=== PATIENT | female | born 1985 | race Caucasian/White ===

== ENCOUNTER → 2016-11-15 | Outpatient (CLI) | payer MEDICARE, MEDICAID | END | disposition home or self-care (01) | LOC: GMAB 10:31 | PROVIDERS: ATTEND Family Medicine | DX: D50.9 Iron deficiency anemia, unspecified (principal); E53.8 Deficiency of other specified B group vitamins ==

== ENCOUNTER → 2016-11-19 | Outpatient (CLI) | payer MEDICARE, MEDICAID | LOC: GMAB 12:39 | PROVIDERS: ATTEND Family Medicine | DX: R53.82 Chronic fatigue, unspecified (principal); I95.89 Other hypotension ==

== ENCOUNTER → 2017-01-12 | Outpatient (CLI) | payer MEDICARE, MEDICAID | END | disposition home or self-care (01) | LOC: LAB.O 08:06 | PROVIDERS: ATTEND Psychiatry & Neurology Sleep Medicine | DX: G40.211 Localization-related (focal) (partial) symptomatic epilepsy and epileptic syndromes with complex partial seizures, intractable, with status epilepticus (principal) ==

== ENCOUNTER → 2017-02-09 | Outpatient (CLI) | payer MEDICARE, MEDICAID | END | disposition home or self-care (01) | LOC: LAB 08:14 | PROVIDERS: ATTEND Internal Medicine | DX: R53.83 Other fatigue (principal); I95.1 Orthostatic hypotension ==

== ENCOUNTER → 2017-04-18 | Outpatient (CLI) | payer MEDICARE, MEDICAID ==
--- NOTE | 2017-04-18 17:07 | US ---
EXAM DESCRIPTION: Bladder: Ultrasound. CLINICAL HISTORY: FAMILY HX OF POLYCYSTIC KIDNEY COMPARISON: Bilateral renal ultrasound on the same visit. TECHNIQUE: Transcutaneous scanning: Two-dimensional and Doppler modes. FINDINGS: Urinary bladder wall 4.6 mm. Prevoid volume 78.2 mL. Postvoid volume 2.4 mL. Ureteral jets were not visualized in the urinary bladder by Doppler. No definite intrinsic masses. No extrinsic mass effect on the bladder. IMPRESSION: Minimal bladder wall thickening but bladder not significantly distended. Voided between 90-95% of the initial volume. Ureteral jets were not seen in the bladder. Electronically signed by: Gui Gonzalez MD 04/18/2017 5:06 PM CDT
--- NOTE | 2017-04-18 19:35 | US ---
EXAM DESCRIPTION: Renal: Ultrasound CLINICAL HISTORY: FAMILY HX OF POLYCYSTIC KIDNEY COMPARISON: Ultrasound of the bladder on the same visit. TECHNIQUE: Transcutaneous scanning: Two-dimensional and Doppler modes. FINDINGS: Right kidney measures 10.9 x 6.4 x 4.9 cm; mid-renal cortical thickness 4.2 mm. . Increased echogenicity compared to the liver with decreased corticomedullary echogenic differentiation. Slightly prominent renal pyramids. No hydronephrosis No calcifications. No cysts. Minimally lobulated contour of the kidney with no perinephric fluid. Decreased vascularity. Proximal ureter not visualized. Left kidney measures 11.8 x 7.9 x 7.1 cm; mid-renal cortical thickness 1.5 mm.. Increased echogenicity of the cortex but decreased compared to the liver. No hydronephrosis. No calcifications. Prominent renal pyramids. Smooth smooth contour of the kidney with no perinephric fluid. Decreased vascularity.. Proximal ureter not visualized. IMPRESSION: 1. Kidneys show cortical atrophy more on the right than the left and abnormal echogenicity of the cortex more right than left. Also a decreased cortical medullary differentiation on the right more than the left. No significant cyst formation bilaterally. No hydronephrosis or perinephric fluid. Findings are suggestive of medical renal disease. Electronically signed by: Gui Gonzalez MD 04/18/2017 7:34 PM CDT
== END | disposition home or self-care (01) ==
LOC: US 07:57
PROVIDERS: ATTEND Family Medicine
DX: Z82.71 Family history of polycystic kidney (principal)

== ENCOUNTER → 2017-05-31 | Outpatient (CLI) | payer MEDICARE, MEDICAID | END | disposition home or self-care (01) | LOC: LAB.O 07:18 | DX: I95.9 Hypotension, unspecified (principal) ==

== ENCOUNTER → 2017-08-01 | Outpatient (CLI) | payer MEDICARE, MEDICAID ==
--- NOTE | 2017-08-01 16:02 | CT ---
EXAM DESCRIPTION: Abdomen/Pelvis w/o Contrast: Computed Tomography. CLINICAL HISTORY: Congenital renal failure COMPARISON: None. TECHNIQUE: Spiral-axial scans 5.0 mm intervals through the abdomen and pelvis without oral or IV contrast. Coronal and sagittal 2.0 mm reconstructions. Total Exam DLP: 493.35 mGy-cm. This exam was performed according to our departmental CT dose-optimization program which includes automated exposure control, adjustment of the mA and/or kV according to patient size and/or use of iterative reconstruction technique; to reduce radiation dose to as low as reasonably achievable (ALARA). FINDINGS: Lung bases and pleura: Negative. Liver, stomach, spleen, and adrenal glands: Surgical hardware and sutures around the stomach anterior to the fundus and also along the greater curvature. Surgical sutures inferior to the stomach in the jejunum could indicate a Mouna-en-Y gastrojejunal anastomosis. Minimal gas and fluid in the stomach. Right lobe of the liver measures 17.4 cm. Other organs are negative. Difficult to visualize the adrenal glands due to lack of intra-abdominal fat.. Pancreas, Gallbladder, and Ducts: Surgical clips in the gallbladder fossa with no fluid. Pancreas grossly normal but difficult to visualize due to lack of fat and air-artifact from gas-filled bowel. Kidneys and Ureters: At least 2 small stones less than 3 mm in diameter in the inferior collecting system of the left kidney. No obstruction. Mesentery: Decreased due to patient body habitus. No free intraperitoneal air. Aorta: Lack of fatty tissue abutting the aorta. Question of lymph nodes or other periaortic soft tissue around the aorta inferior to the renal arteries more on the left. Small Bowel: Limited visualization due to lack of fat. Minimal gas in the proximal small bowel with diffuse fluid distally. No gaseous distention.. Terminal Ileum/Cecum: Not enlarged or distended. Appendix is not well seen. Colon: Minimal gas in the proximal colon with diffuse fecal material. Gas in the transverse colon and predominantly fecal matter in the descending colon and rectosigmoid with minimal gas also in the rectosigmoid. Pelvic Organs: Minimal distention of the urinary bladder with no radiodense stones. Vaginal cuff is unremarkable. No significant amount of fluid in the cul-de-sac. Spine and Bony Pelvis: Spondylosis in the included thoracic spine. Stimulator wires abutting the left mid sacral foramina. Abdominal Wall/Back Soft Tissues: Posterior electrical controller in the lower medial left buttock subcutaneous tissues posterior to the sacrococcygeal border with electrical leads abutting the left sacral foramina. IMPRESSION: 1. Obstipation with fecal matter involving most of the colon. Minimal gaseous distention in the transverse colon. Technically difficult study due to lack of IV contrast. 2. Small air-fluid levels proximal small bowel and distal small bowel containing fluid no definite obstruction. Technically difficult study due to lack of oral contrast. 3. Previous Mouna-en-Y Gastro jejunal anastomosis. No evidence of obstruction. Oral contrast would help to evaluate for obstruction or leakage of contrast if clinically suspected. 4. Low-density soft tissues abutting the aorta inferior to the renal arteries. Represent lymph nodes. These can be defined with more sensitivity after IV contrast. 5. Small stones in the inferior collecting system of the left kidney with no evidence of obstruction. Electronically signed by: Gui Gonzalez MD 08/01/2017 4:01 PM TUMBLERS SUPERVISOR
== END | disposition home or self-care (01) ==
LOC: CT 09:30
PROVIDERS: ATTEND Urology
DX: P96.0 Congenital renal failure (principal); K56.41 Fecal impaction; N20.0 Calculus of kidney

== ENCOUNTER 2017-08-22 16:15 | Observation (INO) | payer MEDICARE, MEDICAID ==
--- NOTE | 2017-08-22 16:54 | HP ---
SUPERVISING PHYSICIAN: Azam Mercedes M.D. CHIEF COMPLAINT: Direct admission for right lower lobe pneumonia. HISTORY OF PRESENT ILLNESS: This is a 32 year-old female who has a 5 day history of body aches, congestion, headache, sore throat and cough. Apparently this has been going on since last Tuesday and the only thing she has taken so far is Zyrtec D. She is not running any fever according to her father. The patient does have MR and does not speak a whole lot, so the History of Present Illness is primarily coming from the father. Anyhow, she went to see a PA over at Dr. Benítez's office today and had a chest x-ray. A two view chest x-ray was notable for a right lower lobe infiltrate. A CBC that was done shows a normal white count, however she does have a history of leukopenia in the past. Her flu screen was negative. Her Strep screen was negative as well. She was referred for observation admission over here for pneumonia. At time of examination the patient is alert and in no distress. PAST MEDICAL HISTORY: 1. Cerebrovascular accident. 2. Seizure disorder. 3. Encephalopathy. 4. Hemiplegia. PAST SURGICAL HISTORY: 1. Hysterectomy. 2. Tonsillectomy and adenoidectomy. 3. Right knee surgery. 4. TENS unit placement. 5. Some sort of bariatric surgery as well. CURRENT MEDICATIONS: 1. Simvastatin 20 mg daily. 2. Ventolin 90 mcg 2 puffs every 4 to 6 hours p.r.n. for cough. 3. Nexium 40 mg daily. 4. Linzess 145 mcg 1 to 2 capsules daily. 5. Paxil 10 mg p.o. daily. 6. Fludrocortisone 0.1 mg 2 tabs by mouth daily. 7. Dilantin 100 mg b.i.d. 8. Vitamin B12 1,000 mcg IM every month. 9. Lorazepam 0.5 mg p.r.n. for anxiety. 10. Zonegran 300 mg in the morning, 400 mg at night. ALLERGIES: LEVAQUIN, BIAXIN, TRILEPTAL, LAMICTAL. FAMILY HISTORY: Father has coronary artery disease, hypertension, hyperlipidemia and myocardial infarction. Mother has hypothyroidism. SOCIAL HISTORY: Nondrinker, nonsmoker. No illicit drugs. REVIEW OF SYSTEMS: See History of Present Illness. The patient does not speak verbally at this point. PHYSICAL EXAMINATION: GENERAL: Ms. Garcia is a 32 year-old female in no active distress currently. HEENT: Head is normocephalic and atraumatic. EYES: Pupils are equal and reactive. NOSE: No drainage. THROAT: Moist mucosa. NECK: Supple, midline trachea. No jugular venous distention. CHEST: Symmetrical with equal rise and fall with respirations. She does have some adventitious lung sounds such as coarse sounds on the right. There is a mild expiratory wheeze. CARDIOVASCULAR: Regular rate and rhythm. Normal S1 and S2. ABDOMEN: Soft, positive bowel sounds. No tenderness to palpation. GENITOURINARY: Exam is deferred. EXTREMITIES: Lower extremities with no significant edema. NEUROLOGIC: The patient is alert but nonverbal with me. She does have a history of MR. LABORATORY: Labs and films are reviewed from the clinic. I have ordered new studies for here. ASSESSMENT: 1. Right lower lobe pneumonia. 2. History of leukopenia which at this time appears to be within normal range. 3. History of seizure disorder. 4. History of mental retardation. PLAN: Will start the patient on pneumonia guidelines which includes blood cultures, sputum cultures along with empiric Rocephin for antibiotics. Will not utilize azithromycin as she does have a history of allergy to Biaxin. Will monitor the cultures and adjust antibiotics accordingly. Additionally, will check a Dilantin level in the morning and also resume the patient's home medications once they are reconciled in the computer. Will utilize seizure precautions for this patient. #[id number] [facility], [place]
[2017-08-22] MEDS ORDERED: SODIUM CHLORIDE 0.9% (FLUSH) 10 ML SYG IV PRN (17:05)
[2017-08-22] MEDS ORDERED: ACETAMINOPHEN 325 MG TAB PO PRN (17:05)
[2017-08-22] MEDS ORDERED: IV SET AND CAP CHANGE INJ INJ SCH (17:30)
[2017-08-22] MEDS ORDERED: cefTRIAXone SODIUM 1 GM VIAL ONE (18:19)
[2017-08-22] MEDS ORDERED: SODIUM CHL 0.9% 50ML MIN-BAG+ 50 ML IVPB ONE (18:19)
[2017-08-22] MEDS: cefTRIAXone SODIUM 1 GM in SODIUM CHL 0.9% 50ML MIN-BAG+ 50 ML IVPB SCH (18:30)
[2017-08-22] MEDS: BRIVARACETAM 200 MG PO SCH (20:00)
[2017-08-22] MEDS: ALBUTEROL SULFATE 2.5 MG/3 ML VIAL NEB SCH (20:11)
[2017-08-22] MEDS ORDERED: ZONISAMIDE 400 MG PO SCH (21:00)
[2017-08-22] MEDS ORDERED: SIMVASTATIN 20 MG TAB PO SCH (21:00)
[2017-08-22] MEDS: KCL 20 MEQ/NS 1,000 ML IVS PRN (21:13)
[2017-08-23] MEDS: FOLIC ACID 800 MCG PO SCH ×2 (06:20→08:52)
[2017-08-23] MEDS: NON-FORMULARY MEDICATION 1 EA MIS (Esomeprazole Magnesium [Nexium] 40 MG) PO SCH (06:20)
[2017-08-23] MEDS: LINACLOTIDE PO SCH (06:21)
[2017-08-23] MEDS: ZONISAMIDE 300 MG PO SCH ×2 (06:21→08:52)
--- NOTE | 2017-08-23 07:05 | RAD ---
EXAM DESCRIPTION: Chest,1 View CLINICAL HISTORY: Pneumonia FINDINGS/ IMPRESSION: Small area of infiltrate medial basilar segment right lower lobe. Normal cardiomediastinal silhouette. No edema or effusion. Electronically signed by: Azam Castro MD 08/23/2017 7:04 AM SOFTWARE TEST ENGINEER
[2017-08-23] MEDS: ALBUTEROL SULFATE 2.5 MG/3 ML VIAL NEB SCH ×4 (08:13→21:25)
[2017-08-23] MEDS ORDERED: CYANOCOBALAMIN 1000 MCG PO SCH (09:00)
[2017-08-23] MEDS: KCL 20 MEQ/NS 1,000 ML IVS PRN (11:41)
--- NOTE | 2017-08-23 13:15 | PN ---
SUPERVISING PHYSICIAN: Azam Mercedes MD DATE: 08/23/17 SUBJECTIVE: The patient did not have any complaints overnight. She did not have any shortness of breath. Once again, she really does not interact with me very much and her parents speak for her for the most part, but they do not state that she has any issues. OBJECTIVE: VITAL SIGNS: Blood pressure 88/54. Heart rate 65. Respiratory rate 18. Temperature 97.8. Oxygen saturation 95% on room air. She has remained afebrile since admission. GENERAL: Ms. Garcia is in no active distress currently. HEENT: Normocephalic, atraumatic. Pupils are equal and reactive. No nasal drainage. Throat with moist mucosa. CHEST: Lungs are little bit diminished in the right base, otherwise, clear to auscultation bilaterally. CARDIOVASCULAR: Regular rate and rhythm. Normal S1, S2. ABDOMEN: Soft. Positive bowel sounds. No tenderness to palpation. EXTREMITIES: Lower extremities with good peripheral pulses. Capillary refill is less than 2 seconds. NEUROLOGIC: The patient is alert. As stated before, she is mostly nonverbal. LABORATORY: WBC 3.7, hemoglobin 12.0, hematocrit 35.3, platelet count 213. Chemistry shows sodium 139, potassium 3.5, chloride 113, CO2 19, creatinine 0.42 , glucose 88, calcium 8.5. RADIOLOGY: Chest x-ray was reviewed and still shows a small infiltrate in the medial base of the lower segment of the right lower lobe. This is unchanged. ASSESSMENT: 1. Right lower lobe pneumonia. 2. History of leukopenia. 3. History of seizure disorder. 4. History of mental retardation. PLAN: We will continue the Rocephin for now. Labs are pretty much unremarkable. She does have a history of leukopenia, so I am not concerned about the white blood cell count of 3.7. She does not appear septic. She is very small, so the lower blood pressure is probably chronic for her. She is asymptomatic and has had high 80s to low 90s blood pressures the entire time she has been here so far. Her mother is at the bedside and is concerned somewhat about her lack of eating. However, the patient has had a gastric bypass. I told her mother she could go get her whatever she wanted to eat and she did not have to just utilize the hospital food at this time. If she remains afebrile today and there are no significant changes, she can probably be discharged tomorrow on p.o. antibiotics. #[id number] [facility]
[2017-08-23] MEDS ORDERED: cefTRIAXone SODIUM 1 GM VIAL ONE (17:12)
[2017-08-23] MEDS ORDERED: SODIUM CHL 0.9% 50ML MIN-BAG+ 50 ML IVPB ONE (17:12)
[2017-08-23] MEDS: cefTRIAXone SODIUM 1 GM in SODIUM CHL 0.9% 50ML MIN-BAG+ 50 ML IVPB SCH (17:52)
[2017-08-23] MEDS ORDERED: ZONISAMIDE 400 MG PO SCH (19:00)
[2017-08-23] MEDS ORDERED: SIMVASTATIN 20 MG TAB PO SCH (19:00)
[2017-08-23] MEDS: BRIVARACETAM 200 MG PO SCH (19:03)
[2017-08-24 00:43] VITALS: O2SAT 98
[2017-08-24] MEDS: KCL 20 MEQ/NS 1,000 ML IVS PRN (01:41)
[2017-08-24 02:49] VITALS: TEMP 98
[2017-08-24] MEDS ORDERED: CYANOCOBALAMIN 1,000 MCG TAB ONE (03:11)
[2017-08-24] MEDS ORDERED: FOLIC ACID 1 MG TAB ONE (03:11)
[2017-08-24] MEDS: NON-FORMULARY MEDICATION 1 EA MIS (Esomeprazole Magnesium [Nexium] 40 MG) PO SCH (06:53)
[2017-08-24] MEDS: LINACLOTIDE PO SCH (06:54)
[2017-08-24] MEDS ORDERED: CYANOCOBALAMIN 1,000 MCG TAB PO SCH (07:00)
[2017-08-24] MEDS ORDERED: ZONISAMIDE 300 MG PO SCH (07:00)
[2017-08-24] MEDS ORDERED: FOLIC ACID 1 MG TAB PO SCH (07:00)
[2017-08-24 07:27] VITALS: BP 143/72
--- NOTE | 2017-08-24 07:46 | RAD ---
EXAM DESCRIPTION: Chest,1 View CLINICAL HISTORY: pneumonia follow up shortness of breath, cough COMPARISON: August 23, 2017 IMPRESSION: Single AP portable upright view of the chest shows cardiac silhouette and pulmonary vasculature to be within normal limits. Lungs are normally aerated. Persistent interstitial alveolar infiltrate in the medial aspect of the right lower lobe similar to previous exam. No new infiltrates. No pleural effusion or pneumothorax. Electronically signed by: Tyson Grayson MD 08/24/2017 7:45 AM MAINFRAME SYSTEMS PROGRAMMER
[2017-08-24] MEDS: ALBUTEROL SULFATE 2.5 MG/3 ML VIAL NEB SCH ×2 (08:52→13:19)
--- NOTE | 2017-08-25 08:35 | DS ---
SUPERVISING PHYSICIAN: Azam Mercedes MD ADMISSION DIAGNOSIS: 1. Right lower lobe pneumonia. 2. History of leukopenia. 3. History of seizure disorder. 4. History of mental retardation. DISCHARGE DIAGNOSIS: 1. Right lower lobe pneumonia. 2. History of leukopenia. 3. History of seizure disorder. 4. History of mental retardation. HOSPITAL COURSE: Ms. Garcia is a 32-year-old female who had a five day history of body aches, congestion, headache, sore throat and cough. She had a chest x- ray at the clinic and it showed a right lower lobe infiltrate. For that reason , she was referred for admission. Upon arrival, the patient did have a positive cough and fortunately throughout the admission has been afebrile. She was placed on ceftriaxone and tolerated it well. She was able to eat the day of discharge whereas before she really was not wanting to eat much. Her white blood cell count is not elevated. I am aware she does have a history of leukopenia, but she has not shown any signs of systemic inflammatory response. She is pretty much nonverbal, so most of her interaction is through her parents. She will be discharged in stable condition today. DISCHARGE MEDICATIONS: Doxycycline 100 mg p.o. b.i.d. ACTIVITY: As tolerated. DIET: As per usual. FOLLOWUP: Appointment with Dr. Benítez on 08/29/17 at 10:45 AM. #[id number] [facility]
== END 2017-08-24 13:49 | disposition home or self-care (01) ==
LOC: MS 16:15
PROVIDERS: ADMIT Emergency Medicine; ATTEND Nurse Practitioner
DX: J18.9 Pneumonia, unspecified organism (principal); G40.909 Epilepsy, unspecified, not intractable, without status epilepticus; F79 Unspecified intellectual disabilities; G81.90 Hemiplegia, unspecified affecting unspecified side; Z86.73 Personal history of transient ischemic attack (TIA), and cerebral infarction without residual deficits; Z79.899 Other long term (current) drug therapy; Z88.3 Allergy status to other anti-infective agents; Z88.8 Allergy status to other drugs, medicaments and biological substances; Z98.84 Bariatric surgery status
CPT/HCPCS: 36415 ×4; 71045 ×2; 80048 ×2; 80053; 80185; 81001; 85025 ×2; 87040 ×2; 87070; 87086; 87186; 87205; 94640 ×7; 94760 ×4; 96365; 96376; G0378; J0696 ×2; J3480 ×3; J7050 ×2; J7611 ×6

== ENCOUNTER → 2018-01-02 | Outpatient (CLI) | payer MEDICARE, MEDICAID | LOC: LAB.O 15:30 | PROVIDERS: ATTEND Psychiatry & Neurology Sleep Medicine | DX: G40.319 Generalized idiopathic epilepsy and epileptic syndromes, intractable, without status epilepticus (principal) ==

== ENCOUNTER → 2018-04-21 | Outpatient (CLI) | payer MEDICARE, MEDICAID | LOC: LAB.O 08:32 | PROVIDERS: ATTEND Urology | DX: Z00.00 Encounter for general adult medical examination without abnormal findings (principal); R30.0 Dysuria ==

== ENCOUNTER 2018-06-15 23:09 | Emergency (ER) | payer MEDICARE, MEDICAID ==
[2018-06-15 23:31] VITALS: O2SAT 98
--- NOTE | 2018-06-15 23:46 | RAD ---
EXAM DESCRIPTION: Chest,1 View CLINICAL HISTORY: 33 years Female seizure, possible aspiration COMPARISON: 08/24/2017 FINDINGS: Cardiac size medicinal contour are unchanged. Stimulator over the left chest. There is some increased density in the right lung base. Findings may reflect early aspiration. Recommend continued follow-up. IMPRESSION: Some increased density in the right lung base which may reflect aspiration. Recommend continued follow-up Electronically signed by: Brenda Bojorquez MD 06/15/2018 11:45 PM [facility]
[2018-06-16] MEDS ORDERED: cefTRIAXone SODIUM 1 GM VIAL ONE (00:53)
[2018-06-16] MEDS ORDERED: SODIUM CHL 0.9% 50ML MIN-BAG+ 50 ML IVPB ONE (00:54)
--- NOTE | 2018-06-16 00:55 | ED.PDOC ---
History of Present Illness - General Chief Complaint: Neuro Symptoms/Deficits Stated Complaint: Increased seizure activity Time Seen by Provider: 06/15/18 23:10 Source: patient Exam Limitations: no limitations - History of Present Illness Initial Comments: the patient is a 33-year-old female brought in by EMS by request of her parents. The patient has epilepsy that is primarily of the partial type. She has had epilepsy for many years. She has several different forms of partial seizures. Family reports that in any given day depending on the type of seizure she may have between 50 and a couple of 100 seizures. She has had a stroke in the distant past and does have some left-sided deficits. She does have some speech delay but does communicate fairly well with the parents once the postictal status past. She was brought in tonight because she had one seizure that was more significant than that seen in the last 4-6 months. The seizure started with her throwing up. This has apparently happened in the past but is been a while. It was also followed by more significant postictal period and then has been seen by her parents in a while. Upon arrival she is essentially nonverbal. After a small dose of Ativan and about a half an hour she starts speakingagain . she has been conscious the whole time she was here. In fact dad reports that she never did completely lose consciousness at home. The worst part of the episode probably lasted 3-5 minutes followed by a postictal state lasted probably in total 45 minutes to an hour. During the postictal time she was having some of her more normal partial seizures. No evidence of any trauma. She does have some mild coarse rhonchi primarily on the right side indicating the possibility of a mild aspiration. No hypoxia. No respiratory distress. Vital signs are stable. Timing/Duration: unsure Severity: moderate Improving Factors: nothing Worsening Factors: nothing Associated Symptoms: malaise Allergies/Adverse Reactions: Allergies Clarithromycin [From Biaxin] Allergy (Verified 08/22/17 18:02) Lamotrigine [From Lamictal] Allergy (Verified 08/22/17 18:02) Levofloxacin [From Levaquin] Allergy (Verified 08/22/17 18:02) Oxcarbazepine [From Trileptal] Allergy (Verified 08/22/17 18:02) Tramadol Adverse Reaction (Verified 08/22/17 18:02) Home Medications: Ambulatory Orders Simvastatin 20 mg PO BEDTIME 09/18/14 Brivaracetam [Briviact] 200 mg PO DAILY@1900 08/22/17 Cyanocobalamin [B12] 1,000 mcg PO DAILY 08/22/17 Folic Acid 800 mcg PO DAILY 08/22/17 Linaclotide [Linzess] 145 - 290 mcg PO ACBK 08/22/17 Doxycycline (Monohydrate) [Doxycycline Monohydrate] 100 mg PO BID #20 tab Lacosamide [Vimpat] 150 mg PO DAILY 06/15/18 Potassium Citrate (Alkalinizer [Potassium Citrate ER] 15 meq PO DAILY 06/15/18 Clindamycin HCl 300 mg PO Q8H #14 cap 06/16/18 Review of Systems - Review of Systems Constitutional: States: malaise EENTM: States: no symptoms reported Respiratory: States: no symptoms reported Cardiology: States: no symptoms reported Gastrointestinal/Abdominal: States: no symptoms reported Genitourinary: States: no symptoms reported Musculoskeletal: States: no symptoms reported Skin: States: no symptoms reported Neurological: States: see HPI Endocrine: States: no symptoms reported All other Systems: No Change from Baseline Past Medical History (General) - Patient Medical History Hx Seizures: Yes - VNS x 4, epilepsy Hx Stroke: Yes - 1990 Hx Asthma: Yes - no meds Hx of COPD: No Hx Cardiac Disorders: No Hx Congestive Heart Failure: No Hx Thyroid Disease: No Hx Diabetes: No Hx Renal Disease: Yes Hx Cancer: No Hx Hepatitis C: No Hx MRSA: No Surgical History: cholecystectomy, gastric bypass, Hysterectomy, other - Vaccination History Hx Tetanus, Diphtheria Vaccination: Yes Hx Influenza Vaccination: Yes Hx Pneumococcal Vaccination: No - Social History Hx Tobacco Use: No Hx Chewing Tobacco Use: No Hx Alcohol Use: No Hx Substance Use: No Hx Substance Use Treatment: No Hx Depression: No Hx Physical Abuse: No Hx Emotional Abuse: No Hx Suspected Abuse: No - Female History Patient : - hysterectomy Family Medical History - Family History Father Family History: Unknown Living Status: Still Living Hx Family Hypertension: Yes Hx Cardiac Disease: Yes - Hx GA; cardiac stents Physical Exam - Physical Exam General Appearance: Comfortable, No apparent distress, Lethargic Eye Exam: bilateral normal Ears, Nose, Throat: hearing grossly normal, normal pharynx Neck: full range of motion, supple Respiratory: no respiratory distress, no accessory muscle use, other - mild right-sided rhonchi Cardiovascular/Chest: normal peripheral pulses, regular rate, rhythm, no edema Peripheral Pulses: radial,right: 2+, radial,left: 2+ Gastrointestinal/Abdominal: non tender, soft Rectal Exam: deferred Extremity: normal range of motion - decreased strength significantly to the left upper extremity and mildly to the left lower extremity, no pedal edema - related to her previous stroke, no calf tenderness, normal capillary refill Neurologic: oriented x 3 - after the postictal state his past Skin Exam: normal color Comments: Vital Signs - 24 hr 06/15/18 23:19 Temperature 98.1 F Pulse Rate [ 99 H left] Respiratory 16 Rate Blood Pressure 110/77 [left] O2 Sat by Pulse 98 Oximetry Progress - Progress Progress: 06/16/18 00:57 the patient is a 33-year-old female with a history of epilepsy presenting after a more unusual seizure for her, appears to be complex partial in nature. There is the possibility of mild aspiration. Vital signs are stable. Given this the patient is being started on antibiotics tonight and will be continued on clindamycin for the next 5 days. She did receive a small dose of Ativan IV after arrival here as well as a small dose of oral clonazepam prior to her discharge. Family does need to contact her neurologist tomorrow to report the event and see if any medication changes are recommended. Right now the patient essentially has no respiratory symptoms, however if that changes she may need a repeat evaluation. ER warnings were given. - Results/Orders Results/Orders: Laboratory Tests 06/15/18 06/15/18 22:50 22:50 WBC 4.4 L RBC 4.06 L Hgb 13.2 Hct 39.8 MCV 97.8 MCH 32.5 H MCHC 33.2 RDW 12.3 Plt Count 189 MPV 11.1 H Absolute Neuts (auto) 2.30 Absolute Lymphs (auto) 1.40 Absolute Monos (auto) 0.40 Absolute Eos (auto) 0.20 Absolute Basos (auto) 0.00 Neutrophils % 52.3 Lymphocytes % 33.3 Monocytes % 10.1 H Eosinophils % 3.7 Basophils % 0.6 Sodium 136 Potassium 3.8 Chloride 103 Carbon Dioxide 26 Anion Gap 10.8 L BUN 12 Creatinine 0.42 L BUN/Creatinine Ratio 28.6 H Random Glucose 125 H Serum Osmolality 273.2 L Calcium 8.8 Magnesium 2.1 Total Bilirubin 0.6 AST 24 ALT 14 Alkaline Phosphatase 78 Serum Total Protein 7.8 Albumin 4.2 Globulin 3.6 H Albumin/Globulin Ratio 1.2 TSH 2.11 x-ray of the chest shows right lower lobe infiltrate versus scarring. I believe this is primarily scarring given her previous x-ray readings. Departure - Departure Clinical Impression: Epilepsy Qualifiers: Partial seizure type: with complex partial seizures Intractability: intractable Status epilepticus: without status epilepticus Aspiration into airway Qualifiers: Encounter type: initial encounter Qualified Code(s): T17.908A - Unspecified foreign body in respiratory tract, part unspecified causing other injury, initial encounter Disposition: Discharge to Home or Self Care Condition: Fair Departure Forms: ED Discharge - Pt. Copy, Patient Portal Self Enrollment Instructions: Seizures, Adult (DC), Aspiration Pneumonia (DC) Diet: regular diet Activity: increase activity as tolerated Referrals: Gregor Ortiz MD [Primary Care Provider] - 1-2 Weeks Prescriptions: Clindamycin HCl 300 mg PO Q8H #14 cap Home Medications: Ambulatory Orders Simvastatin 20 mg PO BEDTIME 09/18/14 Brivaracetam [Briviact] 200 mg PO DAILY@1900 08/22/17 Cyanocobalamin [B12] 1,000 mcg PO DAILY 08/22/17 Folic Acid 800 mcg PO DAILY 08/22/17 Linaclotide [Linzess] 145 - 290 mcg PO ACBK 08/22/17 Doxycycline (Monohydrate) [Doxycycline Monohydrate] 100 mg PO BID #20 tab Lacosamide [Vimpat] 150 mg PO DAILY 06/15/18 Potassium Citrate (Alkalinizer [Potassium Citrate ER] 15 meq PO DAILY 06/15/18 Clindamycin HCl 300 mg PO Q8H #14 cap 06/16/18 Additional Instructions: the patient is a 33-year-old female with a history of epilepsy presenting after a more unusual seizure for her, appears to be complex partial in nature. There is the possibility of mild aspiration. Vital signs are stable. Given this the patient is being started on antibiotics tonight and will be continued on clindamycin for the next 5 days. She did receive a small dose of Ativan IV after arrival here as well as a small dose of oral clonazepam prior to her discharge. Family does need to contact her neurologist tomorrow to report the event and see if any medication changes are recommended. Right now the patient essentially has no respiratory symptoms, however if that changes she may need a repeat evaluation. ER warnings were given.
[2018-06-16] MEDS: cefTRIAXone SODIUM 1 GM in SODIUM CHL 0.9% 50ML MIN-BAG+ 50 ML IVPB ONE (00:59)
[2018-06-16] MEDS: CLINDAMYCIN HCL CAP 150 MG CAP PO ONE (00:59)
[2018-06-16 01:54] VITALS: BP 96/63; TEMP 98.6
== END 2018-06-16 01:48 | disposition home or self-care (01) ==
LOC: ER 23:09
DX: G40.909 Epilepsy, unspecified, not intractable, without status epilepticus (principal); T17.908A Unspecified foreign body in respiratory tract, part unspecified causing other injury, initial encounter; J45.909 Unspecified asthma, uncomplicated; N18.9 Chronic kidney disease, unspecified; Z86.73 Personal history of transient ischemic attack (TIA), and cerebral infarction without residual deficits; Z79.899 Other long term (current) drug therapy; Z88.8 Allergy status to other drugs, medicaments and biological substances
CPT/HCPCS: 36415; 71045; 80053; 83735; 84443; 85025; J0696; J2060; J7050

== ENCOUNTER → 2018-11-10 | Outpatient (CLI) | payer MEDICARE, MEDICAID | LOC: LAB.O 08:56 | PROVIDERS: ATTEND Internal Medicine Hematology & Oncology | DX: D50.9 Iron deficiency anemia, unspecified (principal); D64.9 Anemia, unspecified ==

== ENCOUNTER → 2019-04-17 | Outpatient (CLI) | payer MEDICARE, MEDICAID | LOC: YCFC.O 16:39 | PROVIDERS: ATTEND Family Medicine | DX: N39.0 Urinary tract infection, site not specified (principal) ==

== ENCOUNTER → 2019-05-18 | Outpatient (CLI) | payer MEDICARE, MEDICAID | LOC: LAB.O 08:17 | PROVIDERS: ATTEND Internal Medicine Hematology & Oncology | DX: R68.89 Other general symptoms and signs (principal); D53.9 Nutritional anemia, unspecified ==

== ENCOUNTER → 2019-06-18 | Outpatient (CLI) | payer MEDICARE, MEDICAID | LOC: LAB.O 08:58 | PROVIDERS: ATTEND Obstetrics & Gynecology | DX: R45.4 Irritability and anger (principal) ==

== ENCOUNTER 2020-04-03 20:08 | Emergency (ER) | payer MEDICARE, MEDICAID ==
--- NOTE | 2020-04-03 20:35 | ED.PDOC ---
History of Present Illness - General Time Seen by Provider: 04/03/20 20:18 - History of Present Illness Initial Comments: 34 yo F with complex seizures starting at the age 5 comes in with unwitnessed tonic clonic? seizure. Patient was outside on porch. Service dog was inside sta rted barking, alerted mom. did not bite tongue. no postictal state per mom. mom went to help her inside and she fell to the ground when walking inside. did not hit head. fell onto right shoulder. Follows Dr. Suresh in [place], [place]. Mom talk to dr nguyen environmental sampling technician for [facility] and was told to give 1 mg PO ativan. Patient started spitting up when initially taking ativan, spit it back out. She was then able to swallow is successful. Denies recent illness, no fever, no chills, no n/v/d. Allergies/Adverse Reactions: Allergies Clarithromycin [From Biaxin] Allergy (Verified 08/22/17 18:02) Lamotrigine [From Lamictal] Allergy (Verified 08/22/17 18:02) Levofloxacin [From Levaquin] Allergy (Verified 08/22/17 18:02) Oxcarbazepine [From Trileptal] Allergy (Verified 08/22/17 18:02) Tramadol Adverse Reaction (Verified 08/22/17 18:02) Home Medications: Ambulatory Orders Brivaracetam [Briviact] 200 mg PO DAILY@1900 08/22/17 Cyanocobalamin [B12] 1,000 mcg PO DAILY 08/22/17 Folic Acid 800 mcg PO DAILY 08/22/17 Linaclotide [Linzess] 145 - 290 mcg PO ACBK 08/22/17 Lacosamide [Vimpat] 150 mg PO DAILY 06/15/18 B-Complex W/Biotin & Folic Aci [B Complete] 04/03/20 Cannabidiol [Epidiolex] 100 mg PO 04/03/20 Cholecalciferol [D3 High Potency] 5,000 unit PO 04/03/20 Dicyclomine HCl [Bentyl] 20 mg PO 04/03/20 Fluticasone Furoate (Inhalatio 50 mcg 04/03/20 Ketoconazole (Topical) [Ketoconazole] 04/03/20 Lorazepam [Ativan] 1 mg PO 04/03/20 Multiple Vitamin [Multi Vitamin Daily] 04/03/20 Sertraline HCl 50 mg PO 04/03/20 Triamcinolone 0.5% Cream [Kenalog 0.5% Cream] 04/03/20 Review of Systems - Review of Systems Constitutional: Denies: diaphoresis, fever EENTM: Denies: eye pain, tearing Respiratory: Denies: cough, short of breath Cardiology: Denies: edema Gastrointestinal/Abdominal: Denies: abdominal pain, constipation, diarrhea, vomiting Genitourinary: Denies: frequency, hematuria Musculoskeletal: Denies: neck pain Skin: Denies: change in color, rash Neurological: States: pre-existing deficit, seizure Endocrine: Denies: unexplained weight gain, unexplained weight loss Hematologic/Lymphatic: Denies: anemia, easy bleeding, easy bruising Past Medical History (General) - Patient Medical History Hx Seizures: Yes - VNS x 4, epilepsy Hx Stroke: Yes - 1990 Hx Asthma: Yes - no meds Hx of COPD: No Hx Cardiac Disorders: No Hx Congestive Heart Failure: No Hx Thyroid Disease: No Hx Diabetes: No Hx Renal Disease: Yes Hx Cancer: No Hx Hepatitis C: No Hx MRSA: No - Vaccination History Hx Tetanus, Diphtheria Vaccination: Yes Hx Influenza Vaccination: Yes Hx Pneumococcal Vaccination: No - Social History Hx Tobacco Use: No Hx Chewing Tobacco Use: No Hx Alcohol Use: No Hx Substance Use: No Hx Substance Use Treatment: No Hx Depression: No Hx Physical Abuse: No Hx Emotional Abuse: No Hx Suspected Abuse: No - Female History Patient : - hysterectomy Family Medical History - Family History Father Family History: Unknown Living Status: Still Living Hx Family Hypertension: Yes Hx Cardiac Disease: Yes - Hx [place]; cardiac stents Physical Exam - Physical Exam General Appearance: Alert, Comfortable, No apparent distress Eye Exam: bilateral normal ENT Exam: normal ENT inspection, hearing grossly normal, TMs normal, other - right Tm with scar tissue. right canal with scratch. mom states she is constantly. scratching at her ears. Neck: non-tender, full range of motion, supple, normal inspection, trachea midline Respiratory: chest non-tender, lungs clear, normal breath sounds, no respiratory distress, no accessory muscle use Cardiovascular/Chest: normal peripheral pulses, regular rate, rhythm, no edema, no gallop, no JVD, no murmur Peripheral Pulses: radial,right: 2+, radial,left: 2+, dorsalis pedis,right: 2+, dorsalis pedis,left: 2+ Gastrointestinal/Abdominal: normal bowel sounds, non tender, soft, no organomegaly, no pulsatile mass Back Exam: normal inspection, no CVA tenderness, no vertebral tenderness Extremities Exam: non-tender, normal range of motion, no evidence of injury, no edema, other - left upper and lower extremity weakness, chronic from prior stroke. Mental Status: alert, other - at baseline, responding at baseline per mom. checker and packer Exam: normal speech - speech at baseline , PERRL Motor/Sensory: no motor deficit, no sensory deficit, no pronator drift Skin Exam: normal color, warm/dry Progress - Progress Progress: Parital ddx: worsening epilepsy, infection, aspiration pneumonia, electrolyte abnormality, thyroid abnormality. Discussed case with Dr Ward at [facility]. Patient has several seizures daily at baseline. Has vagal stimulator normally last years in most seizure patients, but hers in past only tends to last 1 year due to her frequency of seizures. seizures are usually partial in nature. Has not had battery changed in three years. Has an appointment tomorrow to have it re-evaluated. Ekg shows sinus tachycardia with first degree AV block. Incomplete RBBB which is not new, nonspecific t wave abnormality including t wave inversion in precordial leads. no significant changes when compared to 01/14/15. Blood work shows hypokalemia, mom states she was recently taken off potassium pills because she would not absorb them. Insurance does not cover liquid. Will give liquid 40 meq one time dose here. CT head shows no acute findings. CXR: shows chronic right basilar interstitial thickening would could represent chronic aspiration pneumonitis, no evidence of pneumonia. xray shoulder showed no acute pathology. Discussed findings with Dr. Ward who agrees that patient can return home and follow up tomorrow at [facility] with Dr. Suresh. The data reviewed when caring for this patient included: nurse notes, prior records, etc. The history and assessments from nurses notes were reviewed and considered, and the patient's home medication list was also reviewed and considered. My assessment and the results of testing completed here in the ED were discussed with the patient/family. per mom patient is at baseline. All questions were answered, and mom express understanding of my assessment and the plan. They have been instructed to return if their symptoms worsen, and have been asked to follow up with Dr. Suresh tomorrow to recheck today's presenting complaint. return precautions given. patient was discharged home in stable condition. Marlyn Mishra DO #[id number] Laboratory Results WBC 4.8 K/mm3 (4.8-10.8) 04/03/20 20:30 RBC 3.89 M/mm3 (4.20-5.40) L 04/03/20 20:30 Hgb 12.6 gm/dL (12.0-16.0) 04/03/20 20:30 Hct 37.0 % (36.0-47.0) 04/03/20 20:30 MCV 95.1 fl (81.0-99.0) 04/03/20 20:30 MCH 32.5 pg (27.0-31.0) H 04/03/20 20:30 MCHC 34.2 g/dL (33.0-37.0) 04/03/20 20:30 RDW 12.5 % (11.5-14.5) 04/03/20 20:30 Plt Count 183 K/mm3 (130-400) 04/03/20 20:30 MPV 11.1 fl (7.40-10.4) H 04/03/20 20:30 Absolute Neuts (auto) 2.50 K/uL (1.8-6.8) 04/03/20 20:30 Absolute Lymphs (auto) 1.60 K/uL (1.0-3.4) 04/03/20 20:30 Absolute Monos (auto) 0.40 K/uL (0.2-0.8) 04/03/20 20:30 Absolute Eos (auto) 0.20 K/uL (0.0-0.4) 04/03/20 20:30 Absolute Basos (auto) 0.00 K/uL (0.0-0.1) 04/03/20 20:30 Neutrophils % 52.6 % (42.0-78.0) 04/03/20 20:30 Lymphocytes % 34.1 % (20.0-50.0) 04/03/20 20:30 Monocytes % 9.3 % (2.0-9.0) H 04/03/20 20:30 Eosinophils % 3.4 % (1.0-5.0) 04/03/20 20:30 Basophils % 0.6 % (0.0-2.0) 04/03/20 20:30 PT 9.7 SECONDS (9.0-10.9) 04/03/20 20:30 INR < 1.00 (0.9-1.15) 04/03/20 20:30 PTT (SP) 22.9 SECONDS (21.8-31.6) 04/03/20 20:30 Sodium 136 mmol/L (135-145) 04/03/20 20:30 Potassium 3.1 mmol/L (3.6-5.0) L 04/03/20 20:30 Chloride 102 mmol/L (101-111) 04/03/20 20:30 Carbon Dioxide 25 mmol/L (21-31) 04/03/20 20:30 Anion Gap 12.1 (12-18) 04/03/20 20:30 BUN 10 mg/dL (7-18) 04/03/20 20:30 Creatinine 0.56 mg/dL (0.6-1.3) L 04/03/20 20:30 BUN/Creatinine Ratio 17.9 (10-20) 04/03/20 20:30 Random Glucose 127 mg/dL (70-105) H 04/03/20 20:30 Serum Osmolality 272.6 mOsm/L (275-295) L 04/03/20 20:30 Calcium 8.6 mg/dL (8.4-10.2) 04/03/20 20:30 Phosphorus 3.8 mg/dL (2.5-4.6) 04/03/20 20:30 Magnesium 2.0 mg/dL (1.8-2.5) 04/03/20 20:30 Total Bilirubin 0.3 mg/dL (0.2-1.0) 04/03/20 20:30 AST 18 IU/L (10-42) 04/03/20 20:30 ALT 15 IU/L (10-60) 04/03/20 20:30 Alkaline Phosphatase 76 IU/L (42-121) 04/03/20 20:30 Serum Total Protein 7.2 gm/dL (6.4-8.2) 04/03/20 20:30 Albumin 3.9 g/dl (3.2-5.5) 04/03/20 20:30 Globulin 3.3 gm/dL (2.3-3.5) 04/03/20 20:30 Albumin/Globulin Ratio 1.2 (1.1-1.9) 04/03/20 20:30 TSH 1.65 uIU/mL (0.34-5.60) 04/03/20 20:30 04/03/20 23:46 Departure - Departure Clinical Impression: Seizure disorder, Hypokalemia Time of Disposition: 22:23 Disposition: Discharge to Home or Self Care Departure Forms: ED Discharge - Pt. Copy, Patient Portal Self Enrollment Instructions: Epilepsy in Adults, Hypokalemia (DC), High Potassium Diet Referrals: Isaias Benítez MD [Primary Care Provider] - 1-5 Days Home Medications: Ambulatory Orders Brivaracetam [Briviact] 200 mg PO DAILY@1900 08/22/17 Cyanocobalamin [B12] 1,000 mcg PO DAILY 08/22/17 Folic Acid 800 mcg PO DAILY 08/22/17 Linaclotide [Linzess] 145 - 290 mcg PO ACBK 08/22/17 Lacosamide [Vimpat] 150 mg PO DAILY 06/15/18 B-Complex W/Biotin & Folic Aci [B Complete] 04/03/20 Cannabidiol [Epidiolex] 100 mg PO 04/03/20 Cholecalciferol [D3 High Potency] 5,000 unit PO 04/03/20 Dicyclomine HCl [Bentyl] 20 mg PO 04/03/20 Fluticasone Furoate (Inhalatio 50 mcg 04/03/20 Ketoconazole (Topical) [Ketoconazole] 04/03/20 Lorazepam [Ativan] 1 mg PO 04/03/20 Multiple Vitamin [Multi Vitamin Daily] 04/03/20 Sertraline HCl 50 mg PO 04/03/20 Triamcinolone 0.5% Cream [Kenalog 0.5% Cream] 04/03/20 Additional Instructions: keep scheduled appointment tomorrow with Dr. Curtis
[2020-04-03 20:36] VITALS: TEMP 97.3
--- NOTE | 2020-04-03 21:46 | CT ---
PROCEDURE: Head CLINICAL HISTORY: 34 years Female fall, seizure COMPARISON: 01/14/2015. TECHNIQUE: Contiguous axial CT images obtained through the brain without IV contrast. This exam was performed according to our department optimization program which includes automated exposure control, adjustment of the mA and/or kv according to patient size and/or use of iterative reconstruction technique. FINDINGS: The ventricles and sulci are prominent consistent with atrophic changes. Encephalomalacia in the right cerebral hemisphere with cystic enlargement of the lateral ventricle unchanged from the previous study. Microvascular ischemic changes. No midline shift or mass effect. No mass lesions. No acute hemorrhage. Atherosclerotic calcifications. No fluid or significant mucosal thickening in the visualized paranasal sinuses. No depressed calvarial fractures. IMPRESSION: No acute intracranial abnormality is identified. Generalized atrophy with microvascular ischemic changes. Chronic dilatation of the right lateral ventricle Electronically signed by: Brenda Bojorquez MD 04/03/2020 9:45 PM CDT
--- NOTE | 2020-04-03 21:46 | RAD ---
EXAM: XR Chest, 1 View CLINICAL HISTORY: aspiration TECHNIQUE: Frontal view of the chest. COMPARISON: 06/15/2018 FINDINGS: Lungs: Interstitial thickening in the right base is unchanged. Pleural space: No pneumothorax or pleural effusion. Heart: Stable cardiac shadow. Mediastinum: No abnormality noted. Bones/joints: No osseous destruction or sclerosis noted. Tubes, lines and devices: There is an electrode extending to the left lung apex. IMPRESSION: There is mild right basilar interstitial thickening which appears similar in distribution and severity to 06/15/2018. Acute and/or chronic aspiration pneumonitis should be considered. Electronically signed by: Kira Jane MD 04/03/2020 9:45 PM CDT
[2020-04-03] MEDS: POTASSIUM CHLORIDE ELIXIR 20 MEQ/15 ML UD PO ONE (21:53)
--- NOTE | 2020-04-03 22:19 | RAD ---
EXAM DESCRIPTION: Shoulder,Left 2 or More Views CLINICAL HISTORY: 34 years Female, c/o pain due to fall COMPARISON: None. FINDINGS: No fracture or dislocation. Diffuse osteopenia. Joint spaces are preserved. Soft tissues are unremarkable. IMPRESSION: No acute osseous abnormality. Electronically signed by: Naveen Elliott DO 04/03/2020 10:18 PM CDT
[2020-04-03 22:37] VITALS: BP 115/89; O2SAT 97
== END 2020-04-03 22:37 | disposition home or self-care (01) ==
LOC: ER 20:08
DX: G40.909 Epilepsy, unspecified, not intractable, without status epilepticus (principal); E87.6 Hypokalemia; J45.909 Unspecified asthma, uncomplicated; Z86.73 Personal history of transient ischemic attack (TIA), and cerebral infarction without residual deficits; N28.9 Disorder of kidney and ureter, unspecified; Z79.899 Other long term (current) drug therapy; Z88.8 Allergy status to other drugs, medicaments and biological substances; R00.0 Tachycardia, unspecified; I44.0 Atrioventricular block, first degree; I45.10 Unspecified right bundle-branch block